=== PATIENT | male | born 2000 | race Hispanic/Latino ===

== ENCOUNTER 2019-01-28 12:26 | Emergency (ER) | payer OTHER ==
[~2019-01-28] VITALS: Ht 167.6 cm; Wt 77.5 kg
[2019-01-28 13:07] LABS: BASO % 0.2 % (0.0-1.0); EOS # 0.2 10^3/uL (0.0-0.50); EOS % 2.5 % (0.0-3.0); HEMATOCRIT 43.8 % (42.0-52.0); HEMOGLOBIN 15.6 g/dl (13.5-17.5); LYMPH # 4.1 10^3/uL (1.5-6.5); LYMPH % 44.5 % (24.0-44.0); MEAN CORPUSCULAR HEMOGLOBIN 30.2 pg (27.0-33.0); MEAN CORPUSCULAR HGB CONC 35.6 g/dl (32.0-36.5); MEAN CORPUSCULAR VOLUME 84.9 fl (80.0-96.0); MONO # 0.7 10^3/uL (0.0-0.8); MONO % 7.6 % (0.0-5.0); NEUTROPHILS # 4.1 10^3/uL (1.8-7.7); NEUTROPHILS % 44.9 % (36.0-66.0); PLATELET COUNT, AUTOMATED 256 10^3/uL (150-450); RED BLOOD COUNT 5.16 10^6/uL (4.30-6.10); WHITE BLOOD COUNT 9.1 10^3/uL (4.0-10.0)
[2019-01-28 13:43] LABS: BLOOD UREA NITROGEN 17 MG/DL (7-18); CALCIUM LEVEL 9.5 MG/DL (8.5-10.1); CARBON DIOXIDE LEVEL 22 MEQ/L (21-32); CHLORIDE LEVEL 109 MEQ/L (98-107); CPK CREATINE PHOSPHOKINASE 539 U/L (39-308); CREATININE FOR GFR 0.89 MG/DL (0.70-1.30); GLOMERULAR FILTRATION RATE > 60.0 (>60); GLUCOSE, FASTING 89 MG/DL (70-100); MB/CK RELATIVE INDEX 0.39 (< OR =4); NT-PRO BNP 15 PG/ML (<125); POTASSIUM SERUM 3.6 MEQ/L (3.5-5.1); SODIUM LEVEL 139 MEQ/L (136-145); THYROXINE (T4) 6.2 UG/DL (4.5-12.0); TROPONIN I < 0.02 NG/ML (< 0.10)
--- NOTE | 2019-01-28 13:55 | REP ---
REASON: Dyspnea and cough. PRIORS: None. FINDINGS: The superior mediastinal structures are midline. The cardiac silhouette is unremarkable in size, shape, and position. The diaphragmatic surfaces of the lungs are regular, and the costophrenic angles are clear. The pulmonary kaplan are clear. The imaged osseous structures are intact. IMPRESSION: There is no acute cardiopulmonary disease. Electronically Signed by Sandeep White DO 01/28/2019 03:26 P
[2019-01-28] MEDS ORDERED: ALBUTEROL SULFATE 2.5 MG/0.5 ML INH NEB SOLN NEB ONE ×2 (14:00→14:30)
[2019-01-28] MEDS ORDERED: PROAAER10 INH (14:54)
[2019-01-28 14:57] VITALS: BP 122/57
--- NOTE | 2019-01-28 20:34 | ECGEPIP ---
Stationary ECG Study [facility] - ED Test Date: 2019-01-28 Pat Name: GIANNI CHEN Department: Room: - Gender: M Contract Preparer: : 2000 Requested By: DALTON Delgado PA-C Order Number: [id number] Reading MD: Meme Escamilla Measurements Intervals [place] Rate: 85 P: 7 NH: 129 QRS: 34 QRSD: 93 T: 35 QT: 374 QTc: 447 Interpretive Statements SINUS RHYTHM PROBABLE EARLY REPOLARIZATION -CLINICAL CORRELATION NO PRIOR FOR COMPARISON Electronically Signed On 01-28-2019 20:34:34 EDT by Meme Escamilla
== END 2019-01-28 15:04 | disposition home or self-care (01) ==
LOC: M ED 12:26 → EDBD 12:26 → M ED 15:04
DX: R06.02 Shortness of breath (principal); R07.89 Other chest pain

== ENCOUNTER 2020-07-02 00:01 | Emergency (ER) | payer OTHER ==
[~2020-07-02] VITALS: Ht 167.6 cm; Wt 69.1 kg
[~2020-07-02 00:01] MED LIST: PROAAER10 INH
[2020-07-02 00:02] VITALS: BP 127/74
== END 2020-07-02 00:52 | disposition left against medical advice (07) ==
LOC: M ED 00:01
DX: Z53.20 Procedure and treatment not carried out because of patient's decision for unspecified reasons (principal); R42 Dizziness and giddiness; R51.9 Headache, unspecified; V18.2XXA Unspecified pedal cyclist injured in noncollision transport accident in nontraffic accident, initial encounter; Y92.9 Unspecified place or not applicable; Y93.55 Activity, bike riding; Y99.9 Unspecified external cause status